=== PATIENT | male | born 2000 | race Caucasian/White ===

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

== ENCOUNTER 2021-11-19 10:00 | Emergency (ER) | payer OTHER ==
[2021-11-19] MEDS ORDERED: LIDOCAINE 1% MPF 5 ML VIAL ONE ×2 (10:17→12:07)
[2021-11-19] MEDS ORDERED: TETANUS & DIPHTHERIA TOX,ADULT 0.5 ML VIAL ONE (10:55)
--- NOTE | 2021-11-19 12:18 | ER ---
Nurse's Notes [facility] Name: Vadim Guardado Age: 21 yrs Sex: Male : 2000 Arrival Date: 11/19/2021 Time: 10:04 Bed 7 Private MD: Diagnosis: Laceration of lip and oral cavity without foreign body;Bitten by dog Presentation: 11/19 10:18 Chief complaint: Patient states: "I bent down to play with my friends dog, Old [place] vg1 Bulldog, and he bit my lip" Pt appears to have a laceration to Left corner of upper lip, no bleeding at this time, incident occurred about 30 minutes ago in [place]. Coronavirus screen: Vaccine status: Patient reports being unvaccinated. Client denies travel out of the [place] in the last 14 days. Ebola Screen: Patient negative for fever greater than or equal to 101.5 degrees Fahrenheit, and additional compatible Ebola Virus Disease symptoms. Complicating Factors: There are no complicating factors for this patient. Initial Sepsis Screen: Does the patient meet any 2 criteria? No. Patient's initial sepsis screen is negative. Does the patient have a suspected source of infection? No. Patient's initial sepsis screen is negative. Risk Assessment: Do you want to hurt yourself or someone else? Patient reports no desire to harm self or others. Onset of symptoms was November 19, 2021. 10:18 Method Of Arrival: Ambulatory vg1 10:18 Acuity: JONNATHAN 3 vg1 Triage Assessment: 10:21 General: Appears in no apparent distress. comfortable, Behavior is calm, cooperative. vg1 Pain: Complains of pain in left corner of mouth. 10:21 EENT: No deficits noted. Neuro: Level of Consciousness is awake, alert, obeys commands, vg1 Oriented to person, place, time, situation. Cardiovascular: Patient's skin is warm and dry. Respiratory: Airway is patent Respiratory effort is even, unlabored. GI: No signs and/or symptoms were reported involving the gastrointestinal system. : No signs and/or symptoms were reported regarding the genitourinary system. Derm: Skin is pink, warm \\T\\ dry. Musculoskeletal: Circulation, motion, and sensation intact. Injury Description: Laceration sustained to left corner of mouth is clean, not bleeding, was sustained 30-60 minutes ago. Historical: - Allergies: 10:21 No Known Allergies; vg1 - Home Meds: 10:21 None [Active]; vg1 - PMHx: 10:21 None; vg1 - PSHx: 10:21 Appendectomy; vg1 - Immunization history:: Client reports having NOT received the Covid vaccine. - Social history:: Smoking status: Reported history of juuling and/or vaping. Screenin:23 Abuse screen: Denies threats or abuse. Nutritional screening: No deficits noted. vg1 Tuberculosis screening: No symptoms or risk factors identified. Fall Risk No fall in past 12 months (0 pts). No secondary diagnosis (0 pts). No IV (0 pts). Ambulatory Aid- None/Bed Rest/Nurse Assist (0 pts). Gait- Normal/Bed Rest/Wheelchair (0 pts) Mental Status- Oriented to own ability (0 pts). Total Edwards Fall Scale indicates No Risk (0-24 pts). Assessment: 10:23 Reassessment: SEE TRIAGE. 1 10:25 Reassessment: Contacted [employer] [facility] to notify of dog bit incident, spoke with Felton lockett and stated would send a police reserves commander to speak with pt. 10:40 Reassessment: [employer] [facility] at bedside; stated [facility] jurisdiction. 11:09 Reassessment: Patient appears in no apparent distress at this time. No changes from 1 previously documented assessment. Patient and/or family updated on plan of care and expected duration. Pain level reassessed. Patient is alert, oriented x 3, equal unlabored respirations, skin warm/dry/pink. 11:29 Reassessment: Deputy Ceci Frost [id number], from [facility] office at bedside. [facility] . 12:12 Reassessment: Patient appears in no apparent distress at this time. No changes from 1 previously documented assessment. Patient and/or family updated on plan of care and expected duration. Pain level reassessed. Patient is alert, oriented x 3, equal unlabored respirations, skin warm/dry/pink. Vital Signs: 10:18 BP 111 / 67; Pulse 93; Resp 16; Temp 97.9; Pulse Ox 100% ; Weight 65.77 kg; Height 5 vg1 ft. 5 in. (165.10 cm); Pain 2/10; 11:09 BP 95 / 74; Pulse 90; Resp 15; Pulse Ox 100% ; vg1 12:15 BP 123 / 73; Pulse 82; Resp 15; Pulse Ox 100% ; vg1 10:18 Body Mass Index 24.13 (65.77 kg, 165.10 cm) vg1 ED Course: 10:04 Patient arrived in ED. mr 10:06 Rylie Mix FNP-C is [facility]. kb 10:06 Carlos Pacheco MD is Attending Physician. kb 10:13 Ludmila Recinos, RN is Primary Nurse. vg1 10:21 Triage completed. vg1 10:21 Arm band placed on. vg1 10:23 Patient has correct armband on for positive identification. Bed in low position. Call vg1 light in reach. Adult w/ patient. 12:12 Assist provider with laceration repair on left corner of mouth that was 2.5 cm. or less vg1 using sutures. Set up tray. Performed by Rylie CASILLAS Patient tolerated well. Patient did not have IV access during this emergency room visit. Administered Medications: 10:55 Drug: Tetanus-Diphtheria Toxoid Adult 0.5 ml {Back Feeder Plywood Layup Line: [employer]. Exp: vg1 10/22/2023. Lot #: [id number]. } Route: IM; Site: right deltoid; 12:28 Follow up: Response: No adverse reaction vg1 11:29 Drug: Lidocaine (1 %) 1 vials {Note: per Yesica Mix NP.} Volume: 5 ml; Route: ph Infiltration; 12:29 Follow up: Response: No adverse reaction vg1 Outcome: 12:18 Discharge ordered by . kb 12:24 Discharged to home ambulatory. vg1 12:24 Condition: good 12:24 Discharge instructions given to patient, Instructed on discharge instructions, follow up and referral plans. medication usage, Demonstrated understanding of instructions, follow-up care, medications, Prescriptions given X 1. 12:28 Patient left the ED. vg1 Signatures: Rylie Mix FNP-C FNP-Joey Vikki HareUrszula RN RN ph Ludmila Recinos, RN RN vg1 Corrections: (The following items were deleted from the chart) 12:15 11:29 Reassessment: Officer Santosh from [facility] office at bedside. vg1 vg1
--- NOTE | 2021-11-19 12:18 | EDPHYS ---
Physician Documentation [facility] Name: Vadim Guardado Age: 21 yrs Sex: Male : 2000 Arrival Date: 11/19/2021 Time: 10:04 Bed 7 Private MD: ED Physician Carlos Pacheco HPI: 11/19 10:26 This 21 yrs old Male presents to ER via Ambulatory with complaints of Laceration To Lip.kb 10:26 The patient has a laceration related to: a dog bite. occurred at a friend's home, and kb The injury was accidental. The laceration(s) is(are) located on the left corner of mouth. Onset: The symptoms/episode began/occurred just prior to arrival. Associated signs and symptoms: The patient has no apparent associated signs or symptoms. The patient has not experienced similar symptoms in the past. The patient has not recently seen a physician. Pt was playing with a puppy that bit his lip. Historical: - Allergies: 10:21 No Known Allergies; vg1 - Home Meds: 10:21 None [Active]; vg1 - PMHx: 10:21 None; vg1 - PSHx: 10:21 Appendectomy; vg1 - Immunization history:: Client reports having NOT received the Covid vaccine. - Social history:: Smoking status: Reported history of juuling and/or vaping. ROS: 10:25 Constitutional: Negative for fever, chills, and weight loss. kb 10:25 Skin: Positive for laceration(s), of the left corner of mouth. 10:25 All other systems are negative. Exam: 10:25 Constitutional: This is a well developed, well nourished patient who is awake, alert, kb and in no acute distress. Head/Face: Normocephalic, atraumatic. ENT: Moist Mucous membranes Respiratory: Respirations even and unlabored. No increased work of breathing. Talking in full sentences MS/ Extremity: Pulses equal, no cyanosis. Neurovascular intact. Full, normal range of motion. Neuro: Awake and alert, GCS 15, oriented to person, place, time, and situation. Moves all extremities. Normal gait. Psych: Awake, alert, with orientation to person, place and time. Behavior, mood, and affect are within normal limits. 10:25 Skin: injury, laceration(s), the wound is approximately 2 cm(s), of the left corner of mouth, that can be described as clean, no foreign body, irregular, without bleeding. Vital Signs: 10:18 BP 111 / 67; Pulse 93; Resp 16; Temp 97.9; Pulse Ox 100% ; Weight 65.77 kg; Height 5 vg1 ft. 5 in. (165.10 cm); Pain 2/10; 11:09 BP 95 / 74; Pulse 90; Resp 15; Pulse Ox 100% ; vg1 12:15 BP 123 / 73; Pulse 82; Resp 15; Pulse Ox 100% ; vg1 10:18 Body Mass Index 24.13 (65.77 kg, 165.10 cm) vg1 Laceration: 12:16 Wound Repair of 2cm ( 0.8in ) subcutaneous laceration to left corner of mouth. kb Irregularly shaped.. Distal neuro/vascular/tendon intact. Anesthesia: Wound infiltrated with 7 mls of 1% lidocaine. Wound prep: Extensive cleansing with hibiclenz by me, Wound irrigation with saline by me. Skin closed with 7 5-0 fast absorbing gut using simple sutures and sterile technique. Patient tolerated well. MDM: 10:06 Patient medically screened. kb 10:25 Data reviewed: vital signs, nurses notes. Data interpreted: Pulse oximetry: on room air kb is 100 %. Interpretation: normal. 12:16 Counseling: I had a detailed discussion with the patient and/or guardian regarding: the kb historical points, exam findings, and any diagnostic results supporting the discharge/admit diagnosis, the need for outpatient follow up, a family practitioner, to return to the emergency department if symptoms worsen or persist or if there are any questions or concerns that arise at home. 11/19 10:11 Order name: Dressing - Wound; Complete Time: 10:18 kb 11/19 10:11 Order name: Gloves, Sterile; Complete Time: 10:18 kb 11/19 10:11 Order name: Setup Suture Tray; Complete Time: 10:18 kb Administered Medications: 10:55 Drug: Tetanus-Diphtheria Toxoid Adult 0.5 ml {Owner: [employer]. Exp: vg1 10/22/2023. Lot #: [id number]. } Route: IM; Site: right deltoid; 12:28 Follow up: Response: No adverse reaction vg1 11:29 Drug: Lidocaine (1 %) 1 vials {Note: per Yesica Mix NP.} Volume: 5 ml; Route: ph Infiltration; 12:29 Follow up: Response: No adverse reaction vg1 Disposition Summary: 11/19/21 12:18 Discharge Ordered Location: Home kb Condition: Stable kb Diagnosis - Laceration of lip and oral cavity without foreign body kb - Bitten by dog kb Followup: kb - With: Emergency Department - When: As needed - Reason: Worsening of condition Followup: kb - With: Private Physician - When: 2 - 3 days - Reason: Recheck today's complaints, Continuance of care, Re-evaluation by your physician Discharge Instructions: - Discharge Summary Sheet kb - Animal Bite, Adult, [id number] kb - Mouth Laceration, [id number] kb Forms: - Medication Reconciliation Form kb - Thank You Letter kb - Antibiotic Education kb - Prescription Opioid Use kb Prescriptions: - Augmentin 875-125 mg Oral Tablet - take 1 tablet by ORAL route every 12 hours for 10 days; 20 tablet; Refills: 0, kb Product Selection Permitted Addendum: 11/24/2021 18:57 Co-signature as Attending Physician, Carlos Pacheco MD I agree with the assessment and c davis plan of care. Signatures: Rylie Mix, SOFTWARE COMPUTER SPECIALIST-C SOFTWARE COMPUTER SPECIALIST-Carlos Guerra MD MD cha Hall, Patricia, RN RN Ludmila Hilton, RN RN vg1
[2021-11-19 13:14] VITALS: TEMP 97.9; O2SAT 100
[2021-11-19 13:16] VITALS: BP 123/73
== END 2021-11-19 12:28 | disposition home or self-care (01) ==
LOC: ER 10:00
PROC: 0CQ00ZZ Repair Upper Lip, Open Approach (ICD-10-PCS; principal; 2021-11-19)
DX: S01.511A Laceration without foreign body of lip, initial encounter (principal); W54.0XXA Bitten by dog, initial encounter; Y93.9 Activity, unspecified; Y92.017 Garden or yard in single-family (private) house as the place of occurrence of the external cause; Z23 Encounter for immunization
CPT/HCPCS: 90471; 90714; 99283

== ENCOUNTER 2022-01-09 20:54 | Emergency (ER) | payer OTHER ==
--- NOTE | 2022-01-10 00:02 | EDPHYS ---
Physician Documentation [facility] Name: Vadim Guardado Age: 21 yrs Sex: Male : 2000 Arrival Date: 01/09/2022 Time: 20:58 Bed Waiting Private MD: ED Physician Alirio Powell HPI: 01/09 21:08 This 21 yrs old Male presents to ER via Ambulatory with complaints of Sore Throat. jmm 21:08 The patient presents with sore throat. The patient describes throat pain as constant. jmm Onset: The symptoms/episode began/occurred gradually, just prior to arrival. Modifying factors: The symptoms are alleviated by nothing, the symptoms are aggravated by nothing. This is a 21-year-old male with no chronic medical conditions presents emerged department with complaints of sore throat beginning just prior to arrival. Patient does have concerns due to having a . Denies vomiting, diarrhea. Denies infectious exposure.. Historical: - Allergies: 21:12 No Known Allergies; jb4 - Home Meds: 21:12 None [Active]; jb4 - PMHx: 21:12 None; jb4 - PSHx: 21:12 Appendectomy; jb4 - Immunization history:: Adult Immunizations unknown. - Social history:: Smoking status: Reported history of juuling and/or vaping. ROS: 21:08 Constitutional: Negative for fever, chills, and weight loss. jmm 21:08 Cardiovascular: Negative for chest pain, palpitations, and edema, Respiratory: Negative for shortness of breath, cough, wheezing, and pleuritic chest pain. 21:08 ENT: Positive for sore throat. 21:08 All other systems are negative. Exam: 21:08 Constitutional: This is a well developed, well nourished patient who is awake, alert, jmm and in no acute distress. Head/Face: atraumatic. Eyes: EOMI, no conjunctival erythema appreciated 21:08 Neck: Trachea midline, Supple Chest/axilla: Normal chest wall appearance and motion. Cardiovascular: Regular rate and rhythm. No edema appreciated Respiratory: Normal respirations, no respiratory distress appreciated Abdomen/GI: Non distended, soft Back: Normal ROM Skin: General appearance color normal 21:08 ENT: Posterior pharynx: erythema, that is moderate. 21:08 Musculoskeletal/extremity: ROM: intact in all extremities. 21:08 Skin: Appearance: Color: normal in color. 21:08 Neuro: Orientation: is normal, Mentation: is normal, Memory: is normal. 21:08 Psych: Behavior/mood is pleasant, cooperative. Vital Signs: 21:10 BP 136 / 74; Pulse 75; Resp 16; Temp 99.0(TE); Pulse Ox 100% on R/A; Weight 65.77 kg jb4 (R); Height 5 ft. 5 in. (165.10 cm) (R); Pain 0/10; 21:10 Body Mass Index 24.13 (65.77 kg, 165.10 cm) jb4 MDM: 22:20 Patient medically screened. [facility] 23:57 Data reviewed: vital signs, nurses notes. Counseling: I had a detailed discussion with [facility] the patient and/or guardian regarding: the historical points, exam findings, and any diagnostic results supporting the discharge/admit diagnosis, the need for outpatient follow up, to return to the emergency department if symptoms worsen or persist or if there are any questions or concerns that arise at home. 01/09 21:08 Order name: Strep [facility] 01/09 21:08 Order name: Influenza Screen (a \\T\\ B) [facility] 01/09 22:13 Order name: SARS-COV-2 RT PCR (Document "Date of Onset" if Symptomatic) [facility] 01/10 00:19 Order name: Throat Culture [facility] Administered Medications: No medications were administered Disposition Summary: 01/10/22 00:01 Discharge Ordered Location: Home [facility] Condition: Stable [facility] Diagnosis - Acute pharyngitis, unspecified [facility] Followup: [facility] - With: Private Physician - When: 2 - 3 days - Reason: Recheck today's complaints, Continuance of care, Re-evaluation by your physician Discharge Instructions: - Discharge Summary Sheet [facility] - Pharyngitis [facility] Forms: - Medication Reconciliation Form [facility] - Thank You Letter [facility] - Antibiotic Education [facility] - Prescription Opioid Use [facility] Prescriptions: - Amoxicillin 875 mg Oral Tablet - take 1 tablet by ORAL route every 12 hours for 10 days; 20 tablet; Refills: 0, [facility] Product Selection Permitted Addendum: 01/11/2022 07:20 Co-signature as Attending Physician, Alirio Powell MD. m h7 Signatures: Dispatcher [employer] Henok Apple PA PA jmm Bryson, James, RN RN jb4 Alirio Powell MD MD [email or web address] Corrections: (The following items were deleted from the chart) 01/09 21:13 21:12 Immunization history: Adult Immunizations up to date, jb4 jb4
--- NOTE | 2022-01-10 00:02 | ER ---
Nurse's Notes [facility] Name: Vadim Guardado Age: 21 yrs Sex: Male : 2000 Arrival Date: 01/09/2022 Time: 20:58 Bed Waiting Private MD: Diagnosis: Acute pharyngitis, unspecified Presentation: 01/09 21:10 Chief complaint: Patient states: I am having a soar throat that started 30 minutes ago. jb4 Coronavirus screen: At this time, the client does not indicate any symptoms associated with coronavirus-19. Ebola Screen: No symptoms or risks identified at this time. Initial Sepsis Screen: Does the patient meet any 2 criteria? No. Patient's initial sepsis screen is negative. Does the patient have a suspected source of infection? No. Patient's initial sepsis screen is negative. Risk Assessment: Do you want to hurt yourself or someone else? Patient reports no desire to harm self or others. Onset of symptoms was January 09, 2022. Transition of care: patient was not received from another setting of care. 21:10 Method Of Arrival: Ambulatory jb4 21:10 Acuity: JONNATHAN 4 jb4 Triage Assessment: 21:12 General: Appears in no apparent distress. comfortable, Behavior is calm, cooperative, jb4 appropriate for age. Pain: Denies pain. EENT: Oral mucosa is moist. Throat is clear is reddened with gag reflex present. Historical: - Allergies: 21:12 No Known Allergies; jb4 - Home Meds: 21:12 None [Active]; jb4 - PMHx: 21:12 None; jb4 - PSHx: 21:12 Appendectomy; jb4 - Immunization history:: Adult Immunizations unknown. - Social history:: Smoking status: Reported history of juuling and/or vaping. Screenin/31 00:25 Abuse screen: Denies threats or abuse. Nutritional screening: No deficits noted. jb4 Tuberculosis screening: No symptoms or risk factors identified. Fall Risk None identified. Assessment: 00:25 Reassessment: Patient appears in no apparent distress at this time. Patient and/or jb4 family updated on plan of care and expected duration. Pain level reassessed. Patient is alert, oriented x 3, equal unlabored respirations, skin warm/dry/pink. Vital Signs: 01/09 21:10 BP 136 / 74; Pulse 75; Resp 16; Temp 99.0(TE); Pulse Ox 100% on R/A; Weight 65.77 kg jb4 (R); Height 5 ft. 5 in. (165.10 cm) (R); Pain 0/10; 21:10 Body Mass Index 24.13 (65.77 kg, 165.10 cm) jb4 ED Course: 20:58 Patient arrived in ED. ja2 21:06 Henok Fish PA [facility]CP[facility] 21:06 Alirio Pwoell MD is Attending Physician. [facility] 21:12 Triage completed. jb4 21:12 Arm band placed on right wrist. jb4 01/10 00:25 Patient has correct armband on for positive identification. Bed in low position. Call jb4 light in reach. Side rails up X 1. 00:25 No provider procedures requiring assistance completed. Patient did not have IV access jb4 during this emergency room visit. Administered Medications: No medications were administered Medication: 00:25 VIS not applicable for this client. jb Outcome: 00:01 Discharge ordered by . [facility] 00:25 Discharged to home ambulatory. jb4 00:25 Condition: stable 00:25 Discharge instructions given to patient, Instructed on discharge instructions, follow up and referral plans. medication usage, Demonstrated understanding of instructions, follow-up care, medications, Prescriptions given X 1. 00:26 Patient left the ED. jb4 Signatures: Henok Fish PA PA jmm Bryson, James, RN RN jb4 Kayce Hammer ja Corrections: (The following items were deleted from the chart) 01/09 21:13 21:12 Immunization history: Adult Immunizations up to date, jb4 jb4
[2022-01-10 00:31] VITALS: BP 136/74; TEMP 99; O2SAT 100
== END 2022-01-10 00:26 | disposition home or self-care (01) ==
LOC: ER 20:54
DX: J02.9 Acute pharyngitis, unspecified (principal); Z20.822 Contact with and (suspected) exposure to COVID-19
CPT/HCPCS: 87070; 87081; 87804 ×2; 99282; U0003

== ENCOUNTER 2022-02-19 04:32 | Emergency (ER) | payer OTHER ==
--- NOTE | 2022-02-19 05:42 | ER ---
Nurse's Notes [facility] Name: Vadim Guardado Age: 21 yrs Sex: Male : 2000 Arrival Date: 02/19/2022 Time: 04:35 Bed 5 Private MD: Diagnosis: Acute upper respiratory infection, unspecified;Cough;Coronavirus infection, unspecified;SARS-associated coronavirus as the cause of diseases classified elsewhere Presentation: 02/19 04:57 Chief complaint: Patient states: "I have the chills, I feel like I have a fever, I'm as6 coughing, and I am having nausea and I vomited" pt reports daughter has covid. Coronavirus screen: Client presents with at least one sign or symptom that may indicate coronavirus-19. Standard/surgical mask placed on the client. Provider contacted for isolation considerations. Ebola Screen: No symptoms or risks identified at this time. Initial Sepsis Screen: Does the patient meet any 2 criteria? No. Patient's initial sepsis screen is negative. Does the patient have a suspected source of infection? No. Patient's initial sepsis screen is negative. Risk Assessment: Do you want to hurt yourself or someone else? Patient reports no desire to harm self or others. Onset of symptoms was February 18, 2022. 04:57 Method Of Arrival: Ambulatory as6 04:57 Acuity: JONNATHAN 4 as6 Historical: - Allergies: 04:59 No Known Allergies; as6 - Home Meds: 04:59 None [Active]; as6 - PMHx: 04:59 None; as6 - PSHx: 04:59 Appendectomy; as6 - Immunization history:: Client reports having NOT received the Covid vaccine. - Social history:: Smoking status: Reported history of juuling and/or vaping. Screenin:27 Abuse screen: Denies threats or abuse. Denies injuries from another. Nutritional as6 screening: No deficits noted. Tuberculosis screening: No symptoms or risk factors identified. Fall Risk None identified. Assessment: 05:08 General: Appears in no apparent distress. Behavior is calm, cooperative, Reports chills as6 for fever for feeling ill for fatigue for. Pain: Complains of pain in head. Neuro: Level of Consciousness is awake, alert, obeys commands, Oriented to person, place, time, situation, Reports headache. Respiratory: Reports cough that is Respiratory effort is even, unlabored. GI: Reports nausea, vomiting. 07:00 Reassessment: RECD REPORT FROM JEREMY KEY. 21YO WM P/W N/V. D/C ON HOLD PENDING COVID bp RESULT. 09:18 Reassessment: PT D/C HOME AMBULATORY, DX WITH COVID. bp Vital Signs: 04:57 BP 114 / 76; Pulse 108; Resp 18 S; Temp 98.9(O); Pulse Ox 98% on R/A; Weight 65.77 kg as6 (R); Height 5 ft. 5 in. (165.10 cm) (R); Pain 5/10; 05:53 BP 130 / 86; Pulse 113; Resp 18 S; Pulse Ox 100% on R/A; as6 06:51 BP 100 / 57; Pulse 102; Resp 18 S; Pulse Ox 97% on R/A; as6 07:00 BP 102 / 67; Pulse 111; Resp 16; Pulse Ox 98% ; bp 08:00 BP 109 / 71; Pulse 111; Resp 19; Pulse Ox 98% ; bp 08:59 BP 96 / 57; Pulse 119; Resp 16; Pulse Ox 99% ; bp 04:57 Body Mass Index 24.13 (65.77 kg, 165.10 cm) as6 ED Course: 04:35 Patient arrived in ED. bp1 04:54 Carlos Pacheco MD is Attending Physician. aric 04:57 Jeremy Valles, RN is Primary Nurse. as6 04:59 Triage completed. as6 05:00 Arm band placed on. as6 05:27 Bed in low position. Call light in reach. Side rails up X2. Pulse ox on. NIBP on. Warm as6 blanket given. 05:53 No provider procedures requiring assistance completed. Patient did not have IV access as6 during this emergency room visit. Administered Medications: 05:51 Drug: Zithromax (azithromycin) 500 mg Route: PO; as6 06:33 Follow up: Response: No adverse reaction as6 05:51 Drug: Aspirin Chewable Tablet 162 mg Route: PO; as6 06:33 Follow up: Response: No adverse reaction as6 05:51 Drug: Pepcid (famotidine) 40 mg Route: PO; as6 06:33 Follow up: Response: No adverse reaction as6 05:51 Drug: Ondansetron 4 mg Route: PO; as6 06:33 Follow up: Response: No adverse reaction as6 Medication: 05:53 VIS not applicable for this client. as6 Outcome: 05:42 Discharge ordered by . aric 09:17 Discharged to home ambulatory. bp 09:17 Condition: stable 09:17 Discharge instructions given to patient, Instructed on discharge instructions, follow up and referral plans. medication usage, Demonstrated understanding of instructions, follow-up care, medications, Prescriptions given X 3. 09:19 Patient left the ED. bp Signatures: Carlos Pacheco MD MD cha Peltier, Brian, RN RN Stacia Perez Ashby, SHAHID RN as6
--- NOTE | 2022-02-19 05:43 | EDPHYS ---
Physician Documentation [facility] Name: Vadim Guardado Age: 21 yrs Sex: Male : 2000 Arrival Date: 02/19/2022 Time: 04:35 Bed 5 Private MD: ED Physician Carlos Pacheco HPI: 02/19 05:33 This 21 yrs old Male presents to ER via Ambulatory with complaints of aric Vomiting, - blood. 05:33 The patient presents to the emergency department with nausea, vomiting, that is aric intermittent. Onset: The symptoms/episode began/occurred just prior to arrival. Historical: - Allergies: 04:59 No Known Allergies; as6 - Home Meds: 04:59 None [Active]; as6 - PMHx: 04:59 None; as6 - PSHx: 04:59 Appendectomy; as6 - Immunization history:: Client reports having NOT received the Covid vaccine. - Social history:: Smoking status: Reported history of juuling and/or vaping. ROS: 05:37 Constitutional: Negative for fever, chills, and weight loss, Eyes: Negative for injury, aric pain, redness, and discharge, ENT: Negative for injury, pain, and discharge, Neck: Negative for injury, pain, and swelling, Cardiovascular: Negative for chest pain, palpitations, and edema, Back: Negative for injury and pain, : Negative for injury, bleeding, discharge, and swelling, MS/Extremity: Negative for injury and deformity, Skin: Negative for injury, rash, and discoloration, Neuro: Negative for headache, weakness, numbness, tingling, and seizure, Psych: Negative for depression, anxiety, suicide ideation, homicidal ideation, and hallucinations, Allergy/Immunology: Negative for hives, rash, and allergies, Endocrine: Negative for neck swelling, polydipsia, polyuria, polyphagia, and marked weight changes, Hematologic/Lymphatic: Negative for swollen nodes, abnormal bleeding, and unusual bruising. 05:37 Respiratory: Positive for cough. 05:37 Abdomen/GI: Positive for nausea and vomiting. Exam: 05:37 Constitutional: This is a well developed, well nourished patient who is awake, alert, aric and in no acute distress. Head/Face: Normocephalic, atraumatic. Eyes: Pupils equal round and reactive to light, extra-ocular motions intact. Lids and lashes normal. Conjunctiva and sclera are non-icteric and not injected. Cornea within normal limits. Periorbital areas with no swelling, redness, or edema. ENT: Nares patent. No nasal discharge, no septal abnormalities noted. Tympanic membranes are normal and external auditory canals are clear. Oropharynx with no redness, swelling, or masses, exudates, or evidence of obstruction, uvula midline. Mucous membranes moist. Neck: Trachea midline, no thyromegaly or masses palpated, and no cervical lymphadenopathy. Supple, full range of motion without nuchal rigidity, or vertebral point tenderness. No Meningismus. Chest/axilla: Normal chest wall appearance and motion. Nontender with no deformity. No lesions are appreciated. Cardiovascular: Regular rate and rhythm with a normal S1 and S2. No gallops, murmurs, or rubs. Normal PMI, no JVD. No pulse deficits. Abdomen/GI: Soft, non-tender, with normal bowel sounds. No distension or tympany. No guarding or rebound. No evidence of tenderness throughout. Back: No spinal tenderness. No costovertebral tenderness. Full range of motion. Male : Normal genitalia with no discharge or lesions. Skin: Warm, dry with normal turgor. Normal color with no rashes, no lesions, and no evidence of cellulitis. MS/ Extremity: Pulses equal, no cyanosis. Neurovascular intact. Full, normal range of motion. Neuro: Awake and alert, GCS 15, oriented to person, place, time, and situation. Cranial nerves II-XII grossly intact. Motor strength 5/5 in all extremities. Sensory grossly intact. Cerebellar exam normal. Normal gait. Psych: Awake, alert, with orientation to person, place and time. Behavior, mood, and affect are within normal limits. 05:37 Respiratory: mild respiratory distress is noted, Respirations: normal, Breath sounds: rhonchi. Vital Signs: 04:57 BP 114 / 76; Pulse 108; Resp 18 S; Temp 98.9(O); Pulse Ox 98% on R/A; Weight 65.77 kg as6 (R); Height 5 ft. 5 in. (165.10 cm) (R); Pain 5/10; 05:53 BP 130 / 86; Pulse 113; Resp 18 S; Pulse Ox 100% on R/A; as6 06:51 BP 100 / 57; Pulse 102; Resp 18 S; Pulse Ox 97% on R/A; as6 07:00 BP 102 / 67; Pulse 111; Resp 16; Pulse Ox 98% ; bp 08:00 BP 109 / 71; Pulse 111; Resp 19; Pulse Ox 98% ; bp 08:59 BP 96 / 57; Pulse 119; Resp 16; Pulse Ox 99% ; bp 04:57 Body Mass Index 24.13 (65.77 kg, 165.10 cm) as6 MDM: 04:54 Patient medically screened. [facility] 05:39 Antibiotic administration: The patient is discharged and will get outpatient [facility] antibiotics, Zithromax. Differential diagnosis: Bronchitis viral gastroenteritis, gastroenteritis, pneumonia. The patient's Wells Deep Vein Thrombosis Score was calculated as follows: Heart Rate >100 BPM (1.5 Pts) Total Score: 0-2 Pts- Low Risk. The patient's pulmonary embolism risk score was calculated as follows: Total Score: 0-2 points. This patient was found to be at low risk for a pulmonary embolism by using the Well's assessment criteria. Immunization status:. Data reviewed: vital signs, nurses notes, lab test result(s). Data interpreted: environmental monitoring specialist: rate is 108 beats/min, rhythm is regular, Pulse oximetry: on room air is 98 %. Counseling: I had a detailed discussion with the patient and/or guardian regarding: the historical points, exam findings, and any diagnostic results supporting the discharge/admit diagnosis, lab results. 02/19 04:57 Order name: Flu; Complete Time: 07:17 as02/19 05:02 Order name: COVID-19 SARS RT PCR (Document "Date of Onset" if Symptomatic) [id number] Administered Medications: 05:51 Drug: Zithromax (azithromycin) 500 mg Route: PO; as6 06:33 Follow up: Response: No adverse reaction as6 05:51 Drug: Aspirin Chewable Tablet 162 mg Route: PO; as6 06:33 Follow up: Response: No adverse reaction as6 05:51 Drug: Pepcid (famotidine) 40 mg Route: PO; as6 06:33 Follow up: Response: No adverse reaction as6 05:51 Drug: Ondansetron 4 mg Route: PO; as6 06:33 Follow up: Response: No adverse reaction as6 Disposition Summary: 02/19/22 05:42 Discharge Ordered Location: Home [facility] Problem: new [facility] Symptoms: have improved [facility] Condition: Stable [facility] Diagnosis - Acute upper respiratory infection, unspecified [facility] - Cough aric - Coronavirus infection, unspecified [facility] - SARS-associated coronavirus as the cause of diseases classified elsewhere [facility] Followup: [facility] - With: Private Physician - When: 2 - 3 days - Reason: Recheck today's complaints, Continuance of care, Re-evaluation by your physician Discharge Instructions: - Discharge Summary Sheet [facility] - Upper Respiratory Infection, Adult [facility] - Cool Mist Vaporizer aric - Upper Respiratory Infection, Adult, [id number] aric - Cough, Adult, [id number]-Edpf [facility] - Viral Respiratory Infection, [id number] [facility] - Aspirin and Your Heart [facility] - Cough, Adult [facility] - COVID-19 [facility] - COVID-19 Frequently Asked Questions [facility] - Things to Know about the COVID-19 Pandemic - [facility] - 10 Things You Can Do to Manage Your COVID-19 Symptoms at Home - [facility] - COVID-19: Quarantine vs. Isolation - [facility] - Prevent the Spread of COVID-19 if You Are Sick - [facility] Forms: - Medication Reconciliation Form [facility] - Thank You Letter [facility] - Antibiotic Education [facility] - Prescription Opioid Use [facility] Prescriptions: - Pepcid 20 mg Oral Tablet - take 1 tablet by ORAL route every 12 hours for 21 days; 42 tablet; Refills: 0, [facility] Product Selection Permitted - Zithromax Z-Anoop 250 mg Oral Tablet - take 1 tablet by ORAL route as directed for 5 days Day 1 - take two (2) tablets [facility] one time. Day 2, 3, 4 , 5 take one (1) tablet once daily.; 6 tablet; Refills: 0, Product Selection Permitted - Bromfed DM 2-30-10 mg/5 mL Oral syrup - take 10 milliliter by ORAL route every 6 hours; 180 milliliter; Refills: 0, [facility] Product Selection Permitted Signatures: Dispatcher [employer] Carlos Gil MD MD cha Slawson, Ashby RN RN as6
[2022-02-19] MEDS ORDERED: ASPIRIN 81 MG CHEWABLE TABLET ONE (05:53)
[2022-02-19] MEDS ORDERED: AZITHROMYCIN 250 MG TAB ONE (05:53)
[2022-02-19] MEDS ORDERED: ONDANSETRON 4 MG (ODT) TAB ONE (05:53)
[2022-02-19] MEDS ORDERED: FAMOTIDINE 20 MG TAB ONE (05:53)
[2022-02-19 09:24] VITALS: TEMP 98.9
[2022-02-19 09:36] VITALS: BP 96/57; O2SAT 99
== END 2022-02-19 09:19 | disposition home or self-care (01) ==
LOC: ER 04:32
DX: U07.1 COVID-19 (principal); J06.9 Acute upper respiratory infection, unspecified
CPT/HCPCS: 87804 ×2; U0003; Q0162; 99283